=== PATIENT | female | born 1955 | race Hispanic/Latino ===

== ENCOUNTER → 2018-04-08 | Outpatient (CLI) | payer BC ==
[~2018-04-08] MED LIST: DIGO125T87 PO; DOXY100C2 PO; DRON400T2 PO; ESCI10TA54 PO; FIBERCON PO; LEVO125T95 PO; OXCA300T28 PO; SUVO20TA PO; WARF-57 PO; WARF2.5T85 PO
== END ==
LOC: RAH 14:56
PROVIDERS: ATTEND Psychiatry & Neurology Neurology
DX: G31.89 Other specified degenerative diseases of nervous system (principal); R56.9 Unspecified convulsions
CPT/HCPCS: 70450

== ENCOUNTER → 2020-06-28 | Outpatient (CLI) | payer BC ==
[~2020-06-28] MED LIST changes: +DIGO125T71 PO; -DIGO125T87 PO
== END | disposition home or self-care (01) ==
LOC: SHCH 16:11
PROVIDERS: ATTEND Internal Medicine Cardiovascular Disease
DX: I08.1 Rheumatic disorders of both mitral and tricuspid valves (principal); R06.02 Shortness of breath
CPT/HCPCS: 93306; 93356

== ENCOUNTER → 2022-04-10 | Outpatient (CLI) | payer BC, MEDICARE ==
[~2022-04-10] MED LIST changes: -DOXY100C2 PO; +DOXY100C5 PO; -DRON400T2 PO; +DRON400T7 PO; +ESCI-8 PO; -ESCI10TA54 PO; +REGADENOSON 0.4 MG/5 ML PF SYG IVP SCH
== END | disposition home or self-care (01) ==
LOC: OIH 08:24
PROVIDERS: ATTEND Internal Medicine Cardiovascular Disease
DX: R06.00 Dyspnea, unspecified (principal); R07.89 Other chest pain
CPT/HCPCS: 78452; 96374; 93017; J2785; A9500 ×2

== ENCOUNTER → 2022-12-03 | Outpatient (CLI) | payer MEDICARE ==
[~2022-12-03] MED LIST changes: -REGADENOSON 0.4 MG/5 ML PF SYG IVP SCH
[2022-12-03 16:26] LABS: BASOPHILS % (AUTO) 0.6 % (0.0-5.0); EOSINOPHILS % (AUTO) 2.3 % (0.0-8.0); LYMPHOCYTES % (AUTO) 22.5 % (21.0-51.0); MEAN CORPUSCULAR HEMOGLOBIN 28.8 pg (27.0-33.0); MEAN CORPUSCULAR HGB CONC 32.9 g/dL (32.0-36.0); MEAN CORPUSCULAR VOLUME 87.6 fL (79-99); MONOCYTES % (AUTO) 12.8 % (3.0-13.0); NEUTROPHILS % (AUTO) 61.3 % (40.0-77.0); PLATELET COUNT (AUTO) 318 K/uL (130-400); RED BLOOD CELL COUNT(AUTO) 4.34 MIL/uL (4.00-5.50); RED CELL DISTRIBUTION WIDTH 14.9 % (11.0-15.5); WHITE BLOOD COUNT (AUTO) 6.4 K/uL (4.8-10.8)
[2022-12-03 17:12] LABS: CREATININE 0.8 mg/dL (0.5-1.5); MAGNESIUM 2.4 mg/dL (1.80-2.40); POTASSIUM 4.6 mmol/L (3.5-5.1); THYROID STIMULATING HORMONE 0.39 uIU/mL (0.36-3.74); TOTAL PROTEIN, SERUM 7.9 g/dL (6.0-8.3)
== END | disposition home or self-care (01) ==
LOC: LAB 11:54
PROVIDERS: ATTEND Internal Medicine Cardiovascular Disease
DX: I48.91 Unspecified atrial fibrillation (principal)
CPT/HCPCS: 36415; 80053; 83735; 84439; 84443; 85025

== ENCOUNTER → 2023-01-08 | Outpatient (CLI) | payer MEDICARE | END | disposition home or self-care (01) | LOC: RAH 13:38 | PROVIDERS: ATTEND Internal Medicine | DX: K59.00 Constipation, unspecified (principal) | CPT/HCPCS: 74018 ==

== ENCOUNTER → 2023-01-09 | Outpatient (CLI) | payer MEDICARE | END | disposition home or self-care (01) | LOC: SHCH 13:37 | PROVIDERS: ATTEND Internal Medicine Cardiovascular Disease | DX: I48.0 Paroxysmal atrial fibrillation (principal); I31.39 Other pericardial effusion (noninflammatory); Z95.0 Presence of cardiac pacemaker | CPT/HCPCS: 93306 ==

== ENCOUNTER → 2024-02-26 | Outpatient (CLI) | payer MEDICARE | END | disposition home or self-care (01) | LOC: RAH 13:10 | PROVIDERS: ATTEND Internal Medicine Cardiovascular Disease | DX: I48.4 Atypical atrial flutter (principal); Z95.0 Presence of cardiac pacemaker | CPT/HCPCS: 93306 ==

== ENCOUNTER → 2024-09-01 | Outpatient (CLI) | payer MEDICARE ==
[~2024-09-01] MED LIST changes: +PERFLUTREN PROTEIN-A MICROSPHR 0.22 MG/ML VIAL IV ONE
--- NOTE | 2024-09-10 08:25 | HMCSR ---
APPROVED REPORT EXAM: Two-dimensional and M-mode echocardiogram with Doppler and color Doppler. INDICATION ICD: Z45.0.10, I42.0, I48.19, I48.4 Contrast Details Indication: Endocardial border delineation Agent/Amount Used: Optison 2mL 2D Dimensions RVDd3.5 cmLVEF(%)44.3 (>50%)LVED Vol(simp.)67.4 mL IVSd0.7 (0.7-1.1cm)FS(%)22 %LVES Vol(simp.)37.2 mL LVDd5.4 (3.8-5.6cm)LA (2D)4.6 (1.6-4.0cm)LVEF(%, simp.)45 % PWd0.8 (0.7-1.1cm)Ao Root(2D)3.0 (2.0-3.7cm)LA ESV INDEX (4CH)31.80 mL/m2 IVSs1.1 cmLVOT diam2.0 (1.8-2.4cm)LA ESV INDEX (2CH)43.30 mL/m2 LVDs4.2 (2.5-4.0cm)LA ESV INDEX (BP)40.10 mL/m2 PWs0.9 cm M-Mode Dimensions LA (MM)4.0 (1.6-4.0cm) Ao Root(MM)3.3 (2.0-3.7cm) Aortic Valve AoV VTI0.2 mAo Mean GR2.0 mmHgLVOT VTI0.09 m JOSE (VMAX)2.0 cm2AVA (VTI) 2.0 cm2 Mitral Valve MV E Vmax77.1 cm/sDECEL Zzsx880 ms MR Max PG36 mmHgP 1/2 T71 ms MVA (PHT)3.1 cm2 TDI E/E' Aeeets75.3E/E' Snhpzfy58.3 Medial E' Peak V5.80 cm/sLateral E' Peak V4.00 cm/s Pulmonary Valve PV Vmax0.7 m/s PV Peak GR1.7 mmHg Tricuspid Valve TR Vmax2.1 m/sRAP (EST) 8 gsOeTUNR22.4 mmHg TR Peak GR18.4 mmHg Left Ventricle Left ventricular cavity size is normal. There is normal left ventricular wall thickness. Mild LV syst olic dysfunction. LVEF is 40-45%. The LV diastolic function was unable to be assessed due to atrial a rrhythmia. Right Ventricle The right ventricle is normal size. The right ventricular systolic function is normal. Device lead is present in the right atrium and ventricle. Atria The left atrium is mildly dilated. The right atrium is moderately dilated. Aortic Valve The aortic valve is normal in structure. No aortic regurgitation is present. There is no aortic valvu lar stenosis. Mitral Valve The mitral valve is normal in structure. There is trace of mitral valve regurgitation noted. There is no mitral valve stenosis. Tricuspid Valve The tricuspid valve is normal in structure. There is no tricuspid valve regurgitation noted. Pulmonic Valve The pulmonary valve is normal in structure. There is no pulmonic valvular regurgitation. Great Vessels The aortic root is normal in size. The IVC is normal in size and collapses <50% with inspiration. Pericardium There is no pericardial effusion. Other Information Quality : Technically difficult study due to body habitus Conclusion Mild LV systolic dysfunction. LVEF is 40-45%. The LV diastolic function was unable to be assessed due to atrial arrhythmia. Device lead is present in the right atrium and ventricle. The left atrium is mildly dilated. The right atrium is moderately dilated. There is trace of mitral valve regurgitation noted.
== END | disposition home or self-care (01) ==
LOC: RAH 09:48
PROVIDERS: ATTEND Internal Medicine Cardiovascular Disease
DX: Z45.010 Encounter for checking and testing of cardiac pacemaker pulse generator [battery] (principal); I48.19 Other persistent atrial fibrillation; I42.0 Dilated cardiomyopathy; I48.4 Atypical atrial flutter
CPT/HCPCS: C8929; Q9956

== ENCOUNTER 2025-06-21 06:13 | Day surgery (SDC) | payer MEDICARE ==
[2025-06-16 12:26] VITALS: BP 98/64; PULSE 85; RESP 14; TEMP 97.3
[2025-06-16 12:29] LABS: IMMATURE GRANULOCYTE ABSOLUTE 0.02 K/uL (0-1); NUCLEATED RED BLOOD CELLS 0.0 % (0.0-0.19); PLATELET COUNT (AUTO) 344 K/uL (130-400); RED BLOOD CELL COUNT(AUTO) 4.23 MIL/uL (4.00-5.50); RED CELL DISTRIBUTION WIDTH 15.2 % (11.0-15.5); WHITE BLOOD COUNT (AUTO) 6.3 K/uL (4.8-10.8)
[2025-06-16 12:39] LABS: CREATININE 0.8 mg/dL (0.5-1.0); GLOMERULAR FILTR. RATE CALC 79.0 mL/min (>90); GLUCOSE,RANDOM 62.0 mg/dL (70-105); SODIUM SERUM 137.0 mmol/L (136-145); UREA NITROGEN, BLOOD 13.0 mg/dL (7-18)
[2025-06-16 13:14] LABS: INR 0.99 (0.85-1.15)
--- NOTE | 2025-06-16 20:28 | EKG ---
[facility] Test Date: 2025-06-16 Test Time: 13:15:31 Pat Name: AYAZ OBRIEN Department: [facility] Room: Gender: F Cigarette Tipper: [id number] : 1955 Requested By: NAIDA MELÉNDEZ Order Number: [id number] Reading MD: Mercedes Montana Measurements Intervals [place] Rate: 88 P: 0 SC: 0 QRS: 56 QRSD: 134 T: -77 QT: 426 QTc: 515 Interpretive Statements Atrial fibrillation Multiple ventricular premature complexes IVCD, consider RBBB Anteroseptal infarct, age indeterminate Abnormal T, consider ischemia, lateral leads Compared to ECG 02/29/2016 12:32:22 Ventricular premature complex(es) now present Myocardial infarct finding now present Possible ischemia now present Atrial-paced complex(es) or rhythm no longer present Ventricular-paced complex(es) or rhythm no longer present T-wave abnormality still present Electronically Signed On 06-18-2025 08:49:46 [employer]PRENTICE HAND by Mercedes Montana Please click the below link to view image of tracing.
[2025-06-21] VITALS (9 sets, daily range): BP systolic 104–137; BP diastolic 63–92; PULSE 66–92; RESP 12–20; TEMP 96.7–97.3
[~2025-06-21] VITALS: Ht 158.8 cm; Wt 51.9 kg
[2025-06-21] MEDS ORDERED: SODIUM BICARB 50MEQ 50ML VIAL 50 ML ONE (07:24)
[2025-06-21] MEDS ORDERED: LIDOCAINE HCL 1% MDV 50ML VIAL ONE (07:24)
[2025-06-21] MEDS ORDERED: LIDOCAINE HCL 400MG/20ML VIAL ONE ×2 (07:24→09:30)
[2025-06-21] MEDS ORDERED: IODIXANOL 320 MG/ML 100 ML VIAL ONE ×2 (07:25→12:15)
[2025-06-21] MEDS ORDERED: HEParin-NS 1,000 UNIT/500 ML 500 ML IV ONE (07:52)
[2025-06-21] MEDS: 0.9%NACL 1000ML 1,000 ML IV ONE (08:09)
[2025-06-21] MEDS ORDERED: MIDAZOLAM HCL 1 MG/ML 2ML VIAL ONE ×7 (08:12→14:37)
[2025-06-21] MEDS ORDERED: HEParin-NS 1,000 UNIT/500 ML 1,000 ML IV ONE (09:31)
[2025-06-21] MEDS ORDERED: NITROGLYCERIN 50MG VIAL ONE (09:31)
[2025-06-21] MEDS ORDERED: IOHEXOL 350 MG/ML 100ML INFUS..BTL IV ONE (09:31)
--- NOTE | 2025-06-21 12:46 | PRN ---
PROCEDURE NOTE Indications: Persistent atrial fibrillation, on anticoagulation Pending AV node ablation, and BiV upgrade Unable to identify coronary sinus Abnormal Lexiscan stress test done on 01/11/2025 (small size, moderate intensity, fixed perfusion defect seen in the basal/mid inferior septal wall) Procedures: Coronary angiogram Introduction: After informed written consent was obtained, the patient was brought to the Catheterization Lab in the usual fasting state. Following sterile prep and drape, a time out was performed, then moderate sedation was administered, 2mg of Versed and 50mcg of Fentanyl, then 1% Lidocaine was infiltrated into the right femoral groin. Using a Modified Seldinger technique, a 6Fr Sheath was inserted into the right common femoral artery. While under fluoroscopic guidance, diagnostic coronary catheters were advanced over a wire into the central circulation where they were aspirated, flushed and placed to pressure monitoring, once the wire was removed. Coronary Angio: The left coronary arteries were engaged with appropriate catheters and angiography was performed under continuous pressure monitoring. Cardiac Findings: LM: Large caliber vessel with mild luminal irregularities. The vessel bifurcates into the LAD and LCX. LAD: Medium caliber vessel with 40% stenosis of the proximal LAD and 90% stenosis in the mid LAD. DMITRI 3 blood flow distally. Diagonal 1: Small caliber vessel mild luminal irregularities Diagonal 2: Small caliber vessel with mild luminal irregularities LCx: Medium caliber vessel with mild luminal irregularities. OM1: Small caliber vessel with mild luminal irregularities Medications given: Versed 2mg, Fentanyl 50mcg Coronary Intervention: None Complications: None Conscious Sedation Monitoring: Under my direct order and supervision, medication for moderate conscious sedation was administered by the nursing staff and the patients level of consciousness and physiological status was monitored by an independent trained nurse. Closure of Access Site: After the case completed the sheath was pulled and a 6Fr Angioseal was deployed in the right common femoral artery without complication. Conclusion: 1. 1V CAD, 90% stenosis in the mid LAD. 2. Abnormal Lexiscan stress test done on 01/11/2025 (small size, moderate intensity, fixed perfusion defect seen in the basal/mid inferior septal wall) 3. Persistent atrial fibrillation, on anticoagulation 4. Pending AV node ablation and BiV upgrade Recommendation: 1. Continue with AV node ablation and BiV upgrade 2. 4 hours of bed rest 3. Continue with the medical therapy 4. We will bring the patient back as an outpatient to address the stenosis in the mid LAD BENJI SEARS MD Jun 21, 2025 12:46
[2025-06-21] MEDS ORDERED: BACITRACIN 1 EACH PACKET TP ONE (13:47)
--- NOTE | 2025-06-21 16:30 | NUR ---
URINARY: VOIDED 300CC CLEAR YELLOW COLOR URINE PER BEDPAN WITHOUT DIFFICULTY.
--- NOTE | 2025-06-21 17:16 | NUR ---
URINARY: VOIDED 400CC CLEAR YELLOW COLOR URINE PER BEDPAN WITHOUT DIFFICULTY.
--- NOTE | 2025-06-21 17:58 | NUR ---
chest x ray: dr. emerson viewed chext x -ray and ok to discharge home.
--- NOTE | 2025-06-21 18:58 | HMCIMG ---
STUDY: X-RAY OF THE CHEST, 1 VIEW HISTORY: Status post CRIBBER-P upgrade. TECHNIQUE: A single frontal view of the chest is submitted for interpretation; mild patient rotation is noted. COMPARISON: None provided. FINDINGS: Pulmonary plummer: Pulmonary vascular markings are mildly prominent, compatible with mild vascular congestion. No focal consolidation, sizable pleural effusion, or pneumothorax is identified on this rotated single-view examination. Cardiac silhouette: Mild cardiomegaly is present, with the enlarged cardiac silhouette partially obscuring the left costophrenic angle. Mediastinum and shilpa: Mediastinal contours are within normal limits without evidence of mediastinal widening or discrete hilar mass, allowing for mild rotation. Osseous structures: Visualized ribs, clavicles, and thoracic spine demonstrate no acute displaced fracture or destructive osseous lesion. Miscellaneous: A multilead cardiac pacemaker (CRIBBER-P device) is in situ with leads projecting to the expected regions of the right atrium, right ventricle, and coronary sinus region; lead courses and positions appear intact on this radiograph. No subdiaphragmatic free air is seen. IMPRESSION: * Mild cardiomegaly with mild pulmonary vascular congestion, which may reflect early or low-grade volume overload in the appropriate clinical context. * Multilead cardiac pacemaker (CRIBBER-P) in situ with intact-appearing lead positions on this examination. * No radiographic evidence of focal pneumonia, sizable pleural effusion, or pneumothorax on this mildly rotated single frontal view. * No acute displaced fracture or destructive osseous lesion of the visualized bony thorax. * Current radiographic appearance is compatible with stable post???CRIBBER-P status and mild cardiomegaly with vascular congestion; correlation with clinical symptoms, device interrogation, and echocardiographic assessment should guide ongoing management. /[place]
== END 2025-06-21 18:25 | disposition home or self-care (01) ==
LOC: DAH 06:13
PROVIDERS: ATTEND Internal Medicine Cardiovascular Disease
DX: I48.0 Paroxysmal atrial fibrillation (principal); I50.22 Chronic systolic (congestive) heart failure; I44.2 Atrioventricular block, complete; I48.4 Atypical atrial flutter; I49.5 Sick sinus syndrome; I34.0 Nonrheumatic mitral (valve) insufficiency; Z79.899 Other long term (current) drug therapy
CPT/HCPCS: 80048; 85025; 85610; 85730; 36415; 93005; 99156; 99157 ×6; 93286; 93454; 33225; 93650; 33229; 71045; A4223 ×3; A4554; Q9965; C1769 ×8; C1894 ×3; C1760 ×2; C2621; C1900; A4649 ×2; C1732; J3010 ×3; J0690; J3490 ×5; J7030; J0665; J1644 ×3; J2250 ×7; J2405; Q9967 ×3; A4215; A6251; A4335; A4222; A4221; A4663; A4216; A6258; A4606; 93619